=== PATIENT | female | born 1970 | race Caucasian/White ===

== ENCOUNTER 2021-05-08 11:43 | Emergency (ER) | payer OTHER ==
[~2021-05-08] VITALS: Ht 172.7 cm; Wt 66.7 kg
[2021-05-08 11:50] VITALS: BP_SYST 114
--- NOTE | 2021-05-08 12:05 | NUR ---
Placed in room 03 . Placed on roll tube setter, blood pressure machine and pulse oximeter. To gown for exam. Side rails up.
--- NOTE | 2021-05-08 12:10 | NUR ---
Pt brought by , ambulatory , A&Ox4, pt presents to ER with bodyaches,headache, fever, current temp 98.2 after taking tylenol, pt states symptoms started after traveling to [facility], pt denies N/V/D, skin pink and warm, cap refill <3, respirations even and unlabored.
[2021-05-08 12:28] LABS: BASOPHILS % (AUTO) 0.2 % (0.0-2.0); HEMATOCRIT 42.7 % (36-48); HEMOGLOBIN 14.6 g/dL (12.0-16.0); LYMPHOCYTES # (AUTO) 0.4 K/uL (1.0-5.5); LYMPHOCYTES % (AUTO) 2.6 % (20.5-51.5); MEAN CORPUSCULAR HEMOGLOBIN 32 pg (27-31); MEAN CORPUSCULAR HGB CONC 34 % (32-36); MEAN CORPUSCULAR VOLUME 95 fL (79.0-98.0); MONOCYTES # (AUTO) 1.4 K/uL (0.0-1.0); MONOCYTES % (AUTO) 8.9 % (1.7-9.3); NEUTROPHILS # (AUTO) 14.3 K/uL (1.8-7.7); NEUTROPHILS % (AUTO) 88.3 % (40.0-70.0); PLATELET COUNT (AUTO) 157 K/uL (130-430); RED BLOOD CELL COUNT(AUTO) 4.52 MIL/uL (4.2-6.2); RED CELL DISTRIBUTION WIDTH 12.3 % (9.0-15.0); WHITE BLOOD COUNT (AUTO) 16.2 K/uL (4.8-10.8)
[2021-05-08 12:43] LABS: CALCIUM 9.4 mg/dL (8.4-11.0); CREATININE 0.88 mg/dL (0.55-1.30); POTASSIUM 3.7 mmol/L (3.5-5.1)
[2021-05-08] MEDS ORDERED: METOCLOPRAMIDE HCL 10 MG/2 ML VIAL IVP ONE (12:45)
[2021-05-08] MEDS ORDERED: DIPHENHYDRAMINE INJ 50 MG/ML VIAL IVP ONE (12:45)
[2021-05-08] MEDS ORDERED: IBUPROFEN 800 MG TABLET PO ONE (12:45)
[2021-05-08] MEDS ORDERED: NACL 0.9% 1,000 ML IV ONE ×2 (12:45)
[2021-05-08 12:50] LABS: BILIRUBIN,URINE NEGATIVE (NEGATIVE); BLOOD, URINE 1+ (NEGATIVE); COLOR,URINE YELLOW (YELLOW); GLUCOSE,URINE NEGATIVE (NEGATIVE); KETONES,URINE NEGATIVE (NEGATIVE); LEUKOCYTE ESTERASE ,URINE 3+ (NEGATIVE); NITRITE, URINE POSITIVE (NEGATIVE); PROTEIN URINE TRACE (NEGATIVE); UROBILINOGEN,URINE 0.2 (0.2-1.0)
[2021-05-08 12:50] LABS: ALBUMIN 3.7 g/dL (3.4-4.8); TOTAL BILIRUBIN 0.8 mg/dL (0.0-1.0)
[2021-05-08 12:51] LABS: CLARITY/URINE HAZY (CLEAR)
--- NOTE | 2021-05-08 12:53 | NUR ---
to ct scan
[2021-05-08 12:54] LABS: BACTERIA,URINE MODERATE /HPF (None Seen); MUCUS,URINE 1+ /LPF (None Seen); WBC,URINE 20-50 /HPF (0-3)
[2021-05-08] MEDS ORDERED: CEPH-548 PO ×2 (14:19)
[2021-05-08] MEDS ORDERED: FUROSEMIDE 40 MG/4 ML VIAL IVP ONE (14:30)
[2021-05-08] MEDS ORDERED: cephALEXin 500 MG CAPSULE PO ONE (14:30)
[2021-05-08 14:42] VITALS: BP_SYST 122
--- NOTE | 2021-05-08 14:43 | NUR ---
Patient given written and verbal discharge instructions and verbalizes understanding. ER SIN discussed with patient the results and treatment provided. Patient in stable condition. ID arm band removed. IV catheter removed intact and dressing applied, no active bleeding. Rx of KEFLEX given. Patient educated on pain management and to follow up with PMD. Pain Scale 0. Opportunity for questions provided and answered. Medication side effect fact sheet provided.
== END 2021-05-08 14:43 | disposition home or self-care (01) ==
LOC: SED 11:43
DX: G43.909 Migraine, unspecified, not intractable, without status migrainosus (principal); N39.0 Urinary tract infection, site not specified; I10 Essential (primary) hypertension; E03.9 Hypothyroidism, unspecified; Z79.899 Other long term (current) drug therapy; Z20.822 Contact with and (suspected) exposure to COVID-19
CPT/HCPCS: 36415; 70450; 76376; 80053; 81000; 83605; 85025; 87040; 87086; 87426; 87804 ×2; 96361; 96374; 96375; 99284; J1200; J2765; J7030

== ENCOUNTER 2021-05-09 20:36 | Inpatient (IN) | payer OTHER, SELFPAY ==
[~2021-05-09] VITALS: Ht 172.7 cm; Wt 65.8 kg
[2021-05-09 20:36] VITALS: BP_SYST 143
[~2021-05-09 20:36] MED LIST: CEPH-548 PO
--- NOTE | 2021-05-09 20:36 | NUR ---
Patient to ER bed 04 to gown for evaluation. Side rails up. Report given to RHEA DA SILVA
--- NOTE | 2021-05-09 20:40 | NUR ---
PATIENT BROUGHT IN AMBULATORY FROM HOME COMPLAINING OF UPPER ABDOMINAL PAIN RADIATING TO THE RIGHT FLANK. PATIENT REPORTS "SHE LOOKS YELLOW." PAIN 10/10. REPORTS UPPER ABDOMEN IS "DISTENDED". PATIENT ABDOMEN SOFT.
[2021-05-09] MEDS ORDERED: ONDANSETRON HCL 4 MG/2 ML VIAL ONE (21:44)
[2021-05-09] MEDS ORDERED: ONDANSETRON HCL 4 MG/2 ML VIAL IVP ONE ×2 (21:45→23:30)
[2021-05-09 23:04] LABS: BILIRUBIN,URINE NEGATIVE (NEGATIVE); CLARITY/URINE CLEAR (CLEAR); COLOR,URINE YELLOW (YELLOW); GLUCOSE,URINE TRACE (NEGATIVE); KETONES,URINE NEGATIVE (NEGATIVE); LEUKOCYTE ESTERASE ,URINE 1+ (NEGATIVE); NITRITE, URINE POSITIVE (NEGATIVE); PROTEIN URINE 1+ (NEGATIVE)
[2021-05-09 23:12] LABS: BLOOD, URINE TRACE (NEGATIVE)
[2021-05-09 23:20] LABS: BASOPHILS % (AUTO) 0.1 % (0.0-2.0); EOSINOPHILS # (AUTO) 0.1 K/uL (0.0-0.4); EOSINOPHILS % (AUTO) 0.4 % (0.0-4.0); HEMOGLOBIN 11.6 g/dL (12.0-16.0); LYMPHOCYTES # (AUTO) 0.7 K/uL (1.0-5.5); LYMPHOCYTES % (AUTO) 5.4 % (20.5-51.5); MEAN CORPUSCULAR HEMOGLOBIN 32 pg (27-31); MEAN CORPUSCULAR HGB CONC 34 % (32-36); MEAN CORPUSCULAR VOLUME 95 fL (79.0-98.0); MONOCYTES # (AUTO) 1.2 K/uL (0.0-1.0); MONOCYTES % (AUTO) 8.6 % (1.7-9.3); NEUTROPHILS # (AUTO) 11.6 K/uL (1.8-7.7); NEUTROPHILS % (AUTO) 85.5 % (40.0-70.0); PLATELET COUNT (AUTO) 128 K/uL (130-430); RED CELL DISTRIBUTION WIDTH 12.4 % (9.0-15.0); WHITE BLOOD COUNT (AUTO) 13.5 K/uL (4.8-10.8)
[2021-05-09] MEDS ORDERED: MORPHINE 4 MG INJ. 4 MG/ML VIAL IVP ONE (23:30)
[2021-05-09] MEDS ORDERED: NACL 0.9% 1,000 ML IV ONE (23:30)
[2021-05-09] MEDS ORDERED: KETOROLAC TROMETHAMINE 30 MG VIAL IVP ONE (23:30)
[2021-05-09] MEDS ORDERED: cefTRIAXone 1 GM IVPB PREMIX 50 ML IV ONE (23:30)
[2021-05-09] MEDS ORDERED: methocarbamoL 500 MG TABLET PO ONE (23:30)
--- NOTE | 2021-05-09 23:31 | NUR ---
ER at bedside examining patient.
--- NOTE | 2021-05-10 00:16 | NUR ---
REPORT GIVEN TO RHEA MTZ
[2021-05-10 00:28] LABS: CALCIUM 8.7 mg/dL (8.4-11.0); CREATININE 0.72 mg/dL (0.55-1.30)
[2021-05-10 00:39] LABS: ALBUMIN 2.9 g/dL (3.4-4.8); TOTAL BILIRUBIN 0.6 mg/dL (0.0-1.0)
--- NOTE | 2021-05-10 02:16 | NUR ---
PT COMPLAINT OF SEVERE PAIN, MD NOTIFIED
[2021-05-10] MEDS ORDERED: MORPHINE 4 MG INJ. 4 MG/ML VIAL IVP ONE (02:45)
[2021-05-10] MEDS ORDERED: ONDANSETRON HCL 4 MG/2 ML VIAL ONE (02:52)
[2021-05-10] MEDS ORDERED: methocarbamoL 500 MG TABLET PO ONE (03:15)
[2021-05-10] MEDS ORDERED: CYCLOBENZAPRINE HCL 10 MG TABLET (FLEXERIL) PO ONE ×2 (03:30→07:30)
[2021-05-10 03:53] LABS: BARBITURATE, URINE NEGATIVE (NEG <=200); BENZODIAZEPINE, URINE NEGATIVE (NEG <=150); CANNABINOID, URINE NEGATIVE (NEG <=50); COCAINE, URINE NEGATIVE (NEG <=150); METHAMPHETAMINES SCREEN,URINE NEGATIVE (NEG <=500); OPIATE, URINE NEGATIVE (NEG <=100); PHENCYCLIDINE SCREEN,URINE NEGATIVE (NEG <=25); UR TRICYCLIC ANTIDEPRESSANTS NEGATIVE (NEG <=300); URINE AMPHETAMINE NEGATIVE (NEG <=500); URINE METHADONE NEGATIVE (NEG <=200); URINE OXYCODONE SCREEN NEGATIVE (NEG <=100); URINE PROPOXYPHENE SCREEN NEGATIVE (NEG <=300)
[2021-05-10] MEDS ORDERED: ACETAMINOPHEN 500 MG TABLET PO ONE (04:00)
[2021-05-10] MEDS ORDERED: tiZANidine HCL 4 MG TABLET PO ONE (04:00)
--- NOTE | 2021-05-10 04:03 | NUR ---
PT ORAL TEMP ELEVATED AT 100.7, MD NOTIFIED.
--- NOTE | 2021-05-10 04:06 | NUR ---
Admit bed requested Patient will be admitted to care of Admitted to [facility] unit. Diagnosis Pyelonephritis Inpatient (Yes or No) yes Observation (Yes or No) no Orientation concerns or request close to nursing station (Yes or No) no Covid Status negative On vent or bipap no Isolation requirements no Needs a sitter no From Home (Yes or if No enter name of facility) yes Requires Dialysis (Yes or No) no Med Rec Completed (Yes of No) no
[2021-05-10] MEDS: NACL 0.9% 1,000 ML IV SCH ×2 (04:35→05:53)
[2021-05-10] MEDS ORDERED: tiZANidine HCL 4 MG TABLET ONE (04:40)
--- NOTE | 2021-05-10 04:49 | NUR ---
SKIN ASSESSMENT COMPLETE, NO SKIN BREAKDOWN OBSERVED. PENDING ADMISSION TO THE [facility] SURGE UNIT.
--- NOTE | 2021-05-10 05:26 | NUR ---
ADMIT NOTE Received pt from ER to the floor with a diagnosis of pyelonephritis. Admission process initiated. patient oriented to pain management, safety and call light-teach back done.
--- NOTE | 2021-05-10 05:35 | NUR ---
PT TRNSPORTED TO MED SURGE UNIT TO ROOM 117A VIA WHEEL CHAIR WITH ALL BELONGINGS IN STABLE CONDITION. BEDSIDE REPORT PROVIDED TO RHEA STEINBERG. ALL QUESTIONS ANSWERED
[2021-05-10 05:47] VITALS: BP_SYST 126
--- NOTE | 2021-05-10 07:03 | NUR ---
ATTENDING MD DR OCHOA WAS CALLED, RE: PAIN AND NAUSEA MEDS. LEFT A VOICE MESSAGE.
--- NOTE | 2021-05-10 07:05 | NUR ---
Dr. Kahn/New Orders Spoke with Dr. Kahn about patient's report of nausea and muscle spasm pain. Received orders for Flexeril one time and Zofran PRN with readback and confirmation.
[2021-05-10 08:00] VITALS: BP_SYST 101
[2021-05-10] MEDS ORDERED: MUPIROCIN 2% TOPICAL OINTMENT 22 GM NS PRN (08:45)
[2021-05-10] MEDS ORDERED: POTASSIUM CHLORIDE 20 MEQ TAB.PRT.SR PO PRN (08:45)
[2021-05-10] MEDS ORDERED: LORazepam 2 MG/ML VIAL IVP PRN (08:45)
[2021-05-10] MEDS ORDERED: NALOXONE HCL 0.4 MG/ML AMP (NARCAN) IVP PRN ×2 (08:45)
[2021-05-10] MEDS ORDERED: MORPHINE 2 MG/ML INJ. SYRINGE IVP PRN ×2 (08:45)
[2021-05-10] MEDS ORDERED: DOCUSATE SODIUM 100 MG CAPSULE PO PRN (08:45)
[2021-05-10] MEDS ORDERED: MAGNESIUM SULFATE 50 ML IV PRN (08:45)
[2021-05-10] MEDS ORDERED: ONDANSETRON HCL 4 MG/2 ML VIAL IVP PRN (08:45)
[2021-05-10] MEDS ORDERED: ZOLPIDEM TARTRATE 5 MG TABLET PO PRN (08:45)
[2021-05-10] MEDS ORDERED: CYCLOBENZAPRINE HCL 10 MG TABLET (FLEXERIL) PO SCH (09:00)
--- NOTE | 2021-05-10 09:15 | NUR ---
CONSULTATION PAGED/CALLED Reason for Consultation: [] TRANSAMINITIS Person Who was Notified: [] DR SAEED Consulting Physician: [] DR SAEED Anesthesiology Teacher Specialty: [] GI Ordering Physician: [] DR OCHOA
--- NOTE | 2021-05-10 09:17 | NUR ---
CONSULTATION PAGED/CALLED Reason for Consultation: [] POSS CHOLECYSTITIS Person Who was Notified: [] AIDE Consulting Physician: [] DR PATEL Door To Door Salesman Specialty: [] GEN SURGEON Ordering Physician: [] DR OCHOA
[2021-05-10] MEDS ORDERED: metroNIDAZOLE 500 mg/NS 100 ML IV SCH (09:30)
[2021-05-10 09:31] LABS: BASOPHILS % (AUTO) 0.1 % (0.0-2.0); EOSINOPHILS % (AUTO) 0.1 % (0.0-4.0); HEMATOCRIT 31.9 % (36-48); HEMOGLOBIN 10.7 g/dL (12.0-16.0); LYMPHOCYTES # (AUTO) 0.8 K/uL (1.0-5.5); LYMPHOCYTES % (AUTO) 5.5 % (20.5-51.5); MEAN CORPUSCULAR HEMOGLOBIN 32 pg (27-31); MEAN CORPUSCULAR HGB CONC 34 % (32-36); MEAN CORPUSCULAR VOLUME 95 fL (79.0-98.0); MONOCYTES # (AUTO) 1.5 K/uL (0.0-1.0); MONOCYTES % (AUTO) 11.1 % (1.7-9.3); NEUTROPHILS # (AUTO) 11.6 K/uL (1.8-7.7); NEUTROPHILS % (AUTO) 83.2 % (40.0-70.0); PLATELET COUNT (AUTO) 128 K/uL (130-430); RED BLOOD CELL COUNT(AUTO) 3.37 MIL/uL (4.2-6.2); RED CELL DISTRIBUTION WIDTH 12.5 % (9.0-15.0)
[2021-05-10] MEDS: ONDANSETRON HCL 4 MG/2 ML VIAL IVP PRN ×4 (09:36→22:45)
--- NOTE | 2021-05-10 09:48 | NUR ---
CONSULTATION PAGED/CALLED Reason for Consultation: [] PYLO, POSS CHOLECYSTITIS Person Who was Notified: [] ANITA Consulting Physician: [] DR TRUJILLO Yard Truck Driver Specialty: [] ID Ordering Physician: [] DR OCHOA
[2021-05-10 12:00] VITALS: BP_SYST 112
--- NOTE | 2021-05-10 13:01 | NUR ---
ATTENDING MD DR OCHOA WAS CALLED, RE: MUSCLE RELAXANT, DOES NOT LIKE MORPHINE. LEFT A VOICE MESSAGE.
[2021-05-10] MEDS: tiZANidine HCL 4 MG TABLET PO PRN ×2 (13:17→22:59)
[2021-05-10] MEDS: MORPHINE 2 MG/ML INJ. SYRINGE IVP PRN ×3 (14:20→22:47)
[2021-05-10 16:00] VITALS: BP_SYST 145
[2021-05-10] MEDS: PIPERACILLIN/TAZO 4.5GM/DEX-IS 100 ML IV SCH ×2 (16:27→23:00)
[2021-05-10 20:00] VITALS: BP_SYST 140
[2021-05-10] MEDS: ACETAMINOPHEN 325 MG TABLET PO PRN (20:48)
--- NOTE | 2021-05-10 21:10 | NUR ---
Dr. Blakely/New Order Informed Dr. Blakely of patient's report of headache and muscle spasms. Received order for Toradol PRN and morphine PRN with readback and confirmation.
[2021-05-10] MEDS: KETOROLAC TROMETHAMINE 15 MG VIAL IVP PRN (22:56)
--- NOTE | 2021-05-11 00:50 | NUR ---
New IV Previous IV infiltrated and removed. New IV started to right forearm near elbow.
[2021-05-11 00:54] VITALS: BP_SYST 149
[2021-05-11] MEDS: PIPERACILLIN/TAZO 4.5GM/DEX-IS 100 ML IV SCH ×2 (01:04→06:48)
[2021-05-11] MEDS: NACL 0.9% 1,000 ML IV SCH ×2 (01:05→09:15)
[2021-05-11] MEDS: ONDANSETRON HCL 4 MG/2 ML VIAL IVP PRN (04:57)
[2021-05-11] MEDS: MORPHINE 2 MG/ML INJ. SYRINGE IVP PRN (04:58)
[2021-05-11] MEDS: tiZANidine HCL 4 MG TABLET PO PRN (07:23)
--- NOTE | 2021-05-11 07:37 | NUR ---
Closing/Zanaflex Patient resting in bed, stable and unlabored breathing on room air. Given Zanaflex PRN for muscle spasms. Endorsed care to day shift nurse.
[2021-05-11 07:45] LABS: BASOPHILS % (AUTO) 0.2 % (0.0-2.0); EOSINOPHILS % (AUTO) 0.4 % (0.0-4.0); HEMATOCRIT 33.2 % (36-48); HEMOGLOBIN 11.3 g/dL (12.0-16.0); LYMPHOCYTES # (AUTO) 0.7 K/uL (1.0-5.5); LYMPHOCYTES % (AUTO) 6.7 % (20.5-51.5); MEAN CORPUSCULAR HEMOGLOBIN 32 pg (27-31); MEAN CORPUSCULAR HGB CONC 34 % (32-36); MEAN CORPUSCULAR VOLUME 95 fL (79.0-98.0); MONOCYTES # (AUTO) 1.1 K/uL (0.0-1.0); MONOCYTES % (AUTO) 11.1 % (1.7-9.3); NEUTROPHILS # (AUTO) 8.1 K/uL (1.8-7.7); NEUTROPHILS % (AUTO) 81.6 % (40.0-70.0); PLATELET COUNT (AUTO) 141 K/uL (130-430); RED BLOOD CELL COUNT(AUTO) 3.49 MIL/uL (4.2-6.2); RED CELL DISTRIBUTION WIDTH 12.9 % (9.0-15.0)
[2021-05-11 08:00] VITALS: BP_SYST 150
--- NOTE | 2021-05-11 08:00 | NUR ---
Initial notes Awake, ambulates to the bathroom. denies any abdominal pain, no nausea and vomiting. has slight fever of 100.4. IVF infusing well. call light within reach. Enc. to call for help as needed.
[2021-05-11 08:09] LABS: ALBUMIN 2.5 g/dL (3.4-4.8); BILIRUBIN,DIRECT 0.2 mg/dL (0.0-0.3); CALCIUM 8.3 mg/dL (8.4-11.0); CREATININE 0.74 mg/dL (0.55-1.30); TOTAL BILIRUBIN 0.7 mg/dL (0.0-1.0)
[2021-05-11] MEDS: ACETAMINOPHEN 325 MG TABLET PO PRN (08:18)
--- NOTE | 2021-05-11 10:30 | NUR ---
Notes Spoke to Dr. shanks . Informed MD that patient wants to go home. Per Dr. shanks patient can go home with oral antibiotics ( augmentin).
[2021-05-11] MEDS: KETOROLAC TROMETHAMINE 15 MG VIAL IVP PRN (11:17)
--- NOTE | 2021-05-11 11:26 | NUR ---
Notes Complain of head and neck pain, medicated as ordered. Patient wants to go home. will call attending MD.
[2021-05-11 12:02] VITALS: BP_SYST 136
[2021-05-11] MEDS ORDERED: AUG875 PO (13:08)
[2021-05-11 13:26] VITALS: BP_SYST 136
--- NOTE | 2021-05-11 14:03 | NUR ---
GEN SURGEON DR PATEL WAS CALLED, RE: TO INFORM MD THAT PT IS GOING HOME FOR MRCP RESULT IS NEGATIVE. SPOKE TO KAE.
--- NOTE | 2021-05-11 14:15 | NUR ---
Discharge home, ambulatory. denies any pain or shortness of breath. Discharge instruction and prescription discussed with patient. Patient verbalize understanding. Confirmed to patient pharmacy that her prescription was received. IVL and arm band removed.
== END 2021-05-11 14:15 | disposition home or self-care (01) | DRG 872 ==
LOC: SED 20:36 → SMU 05-10 03:05
PROVIDERS: ADMIT General Practice; ATTEND General Practice
DX: A41.9 Sepsis, unspecified organism (principal); E44.1 Mild protein-calorie malnutrition; E87.1 Hypo-osmolality and hyponatremia; N10 Acute pyelonephritis; E06.3 Autoimmune thyroiditis; K81.9 Cholecystitis, unspecified; E03.9 Hypothyroidism, unspecified; G43.909 Migraine, unspecified, not intractable, without status migrainosus; K21.9 Gastro-esophageal reflux disease without esophagitis; R74.01 Elevation of levels of liver transaminase levels; Z20.822 Contact with and (suspected) exposure to COVID-19; G35 Multiple sclerosis; I10 Essential (primary) hypertension; Z85.3 Personal history of malignant neoplasm of breast; Z90.13 Acquired absence of bilateral breasts and nipples; Z90.49 Acquired absence of other specified parts of digestive tract; Z90.710 Acquired absence of both cervix and uterus; Z68.22 Body mass index [BMI] 22.0-22.9, adult; Z79.899 Other long term (current) drug therapy
CPT/HCPCS: 36415; 74181; 76376; 76705; 80048; 80053; 80076; 80307; 81003; 83036; 83605; 83690; 83735; 85025; 87040; 87086; 96365; 96375; 96376; 99285; J0696; J1885; J2270; J2405; J2543; J3490